=== PATIENT | male | born 1985 | race Hispanic/Latino ===

== ENCOUNTER 2016-07-12 18:55 | Emergency (ER) | payer SELFPAY ==
[~2016-07-12] VITALS: Ht 162.6 cm; Wt 93.1 kg
[~2016-07-12 18:55] MED LIST: NO HOME MEDS
[2016-07-12 19:47] LABS: URINE BLOOD DIPSTICK NEGATIVE (NEGATIVE); URINE CLARITY CLEAR; URINE COLOR YELLOW; URINE GLUCOSE - DIPSTICK 100 mg/dL (NEGATIVE); URINE KETONE NEGATIVE (NEGATIVE); URINE LEUK ESTERASE NEGATIVE (NEGATIVE); URINE NITRITE - DIPSTICK NEGATIVE (Negative); URINE PH 5.5 (4.5-8.0); URINE PROTEIN - DIPSTICK TRACE mg/dL (NEG-TRACE); URINE SPECIFIC GRAVITY >=1.030
[2016-07-12 19:48] LABS: URINE BILIRUBIN - DIPSTICK SMALL (NEGATIVE)
[2016-07-12] MEDS ORDERED: ORPHENADRINE100 MG PO (21:48)
[2016-07-12] MEDS ORDERED: PERCOCET 5/325M1 TAB PO (21:48)
[2016-07-12 21:55] VITALS: BP 131/74
== END 2016-07-12 21:55 | disposition home or self-care (01) | DRG 552 ==
LOC: ED 18:55
PROVIDERS: Emergency Medicine
DX: M54.41 Lumbago with sciatica, right side (principal); R20.2 Paresthesia of skin